=== PATIENT | male | born 1955 | race Caucasian/White ===

== ENCOUNTER 2016-06-22 15:02 | Emergency (ER) | payer MEDICARE, OTHER ==
[~2016-06-22 15:02] MED LIST: Z.0.NO CURRENT MEDS
[2016-06-22 15:04] VITALS: BP 159/72; PULSE 130; RESP 36; TEMP 97.4; O2SAT 99
[2016-06-22] MEDS ORDERED: SODIUM CHLOR 0.9% 1000 ML INJ 1,000 ML IV ONE (15:19)
[2016-06-22 15:20] VITALS: O2SAT 98
[2016-06-22] MEDS ORDERED: SODIUM CHLORIDE 0.9% FLUSH 5 ML FLUSH IVF PRN (15:30)
[2016-06-22] MEDS ORDERED: LORazepam 2 MG/ML VIAL IVS ONE (15:30)
[2016-06-22 15:46] LABS: AUTOMATED NEUTROPHIL # 8.5 TH/MM3 (1.8-7.7); BASOPHIL # 0.1 TH/MM3 (0-0.2); BASOPHIL % 0.6 % (0.0-2.0); EOSINOPHIL % 0.2 % (0.0-4.0); HEMATOCRIT 53.8 % (39.0-51.0); HEMO FLAGS DIFF FINAL; LYMPH % 20.2 % (9.0-44.0); LYMPHOCYTE # 2.4 TH/MM3 (1.0-4.8); MEAN CELL VOLUME 94.7 FL (80.0-100.0); MEAN CORPUSCULAR HEMOGLOBIN 30.7 PG (27.0-34.0); MEAN CORPUSCULAR HGB CONC 32.4 % (32.0-36.0); PLATELET COUNT 213 TH/MM3 (150-450); RED BLOOD COUNT 5.68 MIL/MM3 (4.50-5.90); RED CELL DISTRIBUTION WIDTH 13.7 % (11.6-17.2); WHITE BLOOD COUNT 11.8 TH/MM3 (4.0-11.0)
--- NOTE | 2016-06-22 16:07 | RADRPT ---
EXAM DATE/TIME: 06/22/2016 15:43 [facility] COMPARISON: No previous studies available for comparison. INDICATIONS : Seizure. Fell and hit face. RADIATION DOSE: 40.95 CTDIvol (mGy) MEDICAL HISTORY : Seizures. SURGICAL HISTORY : Fusion, cervical. ENCOUNTER: Initial ACUITY: 1 day PAIN SCALE: 0/10 LOCATION: cranial TECHNIQUE: Multiple contiguous axial images were obtained of the head. Using automated exposure control and adj ustment of the mA and/or kV according to patient size, radiation dose was kept as low as reasonably a chievable to obtain optimal diagnostic quality images. Moderate motion artifact is present requiring multiple images to be repeated. FINDINGS: Ventricles are of normal size. There is no parenchymal hemorrhage, acute infarction or mass lesion. Posterior fossa is unremarkable. The orbits and paranasal sinuses are normal. Soft tissue swelling is present over the right frontal bone without fracture. CONCLUSION: Motion, otherwise negative. Motion makes exclusion of subtle hemorrhage idifficult. Rosalio Stout MD FACR on June 22, 2016 at 16:04 Board Certified Radiologist. This report was verified electronically.
[2016-06-22 16:09] LABS: ALKALINE PHOSPHATASE 94 U/L (45-117); ALT (GPT) 31 U/L (12-78); ANION GAP 24 MEQ/L (5-15); AST (GOT) 34 U/L (15-37); BLOOD UREA NITROGEN 8 MG/DL (7-18); CHLORIDE 100 MEQ/L (98-107); GLOMERULAR FILTRATION RATE 52 ML/MIN (>89); SODIUM (NA) 142 MEQ/L (136-145); TOTAL BILIRUBIN ADULT 0.8 MG/DL (0.2-1.0)
[2016-06-22 16:12] LABS: POTASSIUM 3.7 MEQ/L (3.5-5.1)
--- NOTE | 2016-06-22 16:22 | RADRPT ---
EXAM DATE/TIME: 06/22/2016 15:43 [facility] COMPARISON: No previous studies available for comparison. INDICATIONS : Seizure. Fell and landed on face. RADIATION DOSE: 40.95 CTDIvol (mGy) MEDICAL HISTORY : Seizures. SURGICAL HISTORY : Fusion, cervical. ENCOUNTER: Initial ACUITY: 1 day PAIN SCORE: 0/10 LOCATION: facial TECHNIQUE: Volumetric scanning of the facial bones was performed. Using automated exposure control and adjustme nt of the mA and/or kV according to patient size, radiation dose was kept as low as reasonably achiev able to obtain optimal diagnostic quality images. FINDINGS: ORBITS: The orbital and infraorbital osseous structures are intact. The retroconal structures have a normal configuration. No radiopaque foreign bodies are seen. NASAL BONE: The nasal bone and maxillary spine are intact ZYGOMATIC ARCHES: Symmetric without evidence of fracture. SINUSES: There is mucosal disease at the maxillary sinuses being more prominent on the right. The ethmoid and frontal sinuses are intact. No air-fluid levels seen. NASAL CAVITY: The nasal septum is intact and midline. The lacrimal ducts are intact. INTRACRANIAL: No intracranial air seen. CRIBIFORM PLATE: Grossly intact. There is fracturing of the inferior anterior left maxilla extending to the anterior and lateral aspec t of the maxillary sinus. This is nondisplaced. There are cerclage wires seen at the posterior elemen ts of the upper cervical spine. There is right frontal and supraorbital soft tissue swelling. CONCLUSION: Fracturing of the anterior inferior lateral aspect of the left maxilla. Jluis Guillory MD on June 22, 2016 at 16:15 Board Certified Radiologist. This report was verified electronically.
[2016-06-22] MEDS ORDERED: ONDANSETRON HCL 4 MG/2 ML VIAL IV PUSH ONE (16:45)
[2016-06-22 16:55] VITALS: BP 128/95; PULSE 83; RESP 18; O2SAT 98
[2016-06-22 16:56] LABS: AMPHETAMINE, URINE NEG (NEG); BARBITURATES, URINE NEG (NEG); COCAINE, URINE NEG (NEG)
[2016-06-22] MEDS ORDERED: NAME10TA PO ×2 (17:07→17:57)
[2016-06-22] MEDS ORDERED: TEGR200T PO (17:07)
[2016-06-22] MEDS ORDERED: VENL75CA44 PO (17:57)
--- NOTE | 2016-06-22 19:21 | RADRPT ---
EXAM DATE/TIME: 06/22/2016 19:09 [facility] COMPARISON: No previous studies available for comparison. INDICATIONS : Cough. syncope. MEDICAL HISTORY : seizures. SURGICAL HISTORY : None. ENCOUNTER: Initial ACUITY: 1 day PAIN SCORE: 0/10 LOCATION: Bilateral chest FINDINGS: A single view of the chest demonstrates the lungs to be symmetrically aerated without evidence of mas s, infiltrate or effusion. The cardiomediastinal contours are unremarkable. Osseous structures are intact. CONCLUSION: No evidence of acute cardiopulmonary disease. Jluis Daniels MD on June 22, 2016 at 19:19 Board Certified Radiologist. This report was verified electronically.
--- NOTE | 2016-06-22 19:39 | PD ---
HPI Chief Complaint: Seizure Time Seen by Provider: 15:19 Travel History International Travel<30 days: No Contact w/Intl Traveler<30days: No Traveled to known affect area: No History of Present Illness HPI Patient is a 60 year old male who comes in after a seizure today. He has a history of seizures and takes Tegretol and venlafaxine and has been compliant. Per he had a seizure and fell on his face today. Patient then had another seizure in triage. Per , he was feeling in his normal state of health prior to the seizure. His son states he has not been sleeping well. The family reports he has not had a seizure in a while. He currently has no complaints. PFSH Past Medical History Kidney Stones: Yes Medical other: Yes (MULTIPLE HEAD INJURIES) Seizures: Yes Past Surgical History Abdominal Surgery: Yes (HERNIA REPAIR X 4) Cholecystectomy: Yes Genitourinary Surgery: Yes (VASECTOMY ) Other Surgery: Yes (BREE) Social History Alcohol Use: No Tobacco Use: No Substance Use: No Allergies-Medications (Allergen,Severity, Reaction): Coded Allergies: Penicillin (Verified Allergy, Mild, 06/22/16) Sodium Phosphate (Verified Allergy, Mild, 06/22/16) Tetanus Immune Globulin (Verified Allergy, Mild, 06/22/16) Benadryl (Verified Allergy, Unknown, 06/22/16) Dilantin (Verified Allergy, Unknown, 06/22/16) Uncoded Allergies: BEE STINGS (Allergy, Mild, RESP. DISTRESS, 02/24/06) Reported Meds & Prescriptions Reported Meds & Active Scripts Active Clindamycin (Clindamycin HCl) 150 Mg Cap 450 Mg PO Q6H 7 Days Lortab (Hydrocodone-Acetaminophen) 5-325 Mg Tab 1 Tab PO Q6H PRN Reported Venlafaxine ER 24 HR (Venlafaxine HCl) 75 Mg Cap 75 Mg PO HS Namenda (Memantine) 10 Mg Tab 20 Mg PO HS Tegretol (Carbamazepine) 200 Mg Tab 200 Mg PO HS Review of Systems Except as stated in HPI: all other systems reviewed are Neg Eyes: No: Diploplia, Blurred Vision HENT: No: Headaches Cardiovascular: No: Chest Pain or Discomfort Respiratory: No: Shortness of Breath Gastrointestinal: No: Nausea, Vomiting Skin: Positive Other (laceration), No Change in Pigmentation Neurologic: Positive: Seizures Physical Exam Narrative GENERAL: Awake and alert, in no acute distress SKIN: Warm and dry. abrasions to the face, around the nose. HEAD: Atraumatic. Normocephalic. EYES: Pupils equal and round. No scleral icterus. EOMI ENT: Mucous membranes pink and moist. Slight oozing from right nare, no septal hematoma. NECK: Trachea midline. No JVD. CARDIOVASCULAR: Regular rate and rhythm. No murmur appreciated. RESPIRATORY: No accessory muscle use. Clear to auscultation. Breath sounds equal bilaterally. GASTROINTESTINAL: Abdomen soft, non-tender, nondistended. MUSCULOSKELETAL: No obvious deformities. No clubbing. No cyanosis. No edema. NEUROLOGICAL: Awake and alert. No obvious cranial nerve deficits. Motor grossly within normal limits. Normal speech. PSYCHIATRIC: Appropriate mood and affect; insight and judgment normal. Data Data Last Documented VS Vital Signs Date Time Temp Pulse Resp B/P Pulse Ox O2 Delivery O2 Flow Rate FiO2 06/22/16 20:18 90 18 156/86 93 Room Air 06/22/16 16:55 2 06/22/16 15:04 97.4 Orders Complete Blood Count With Diff (06/22/16 15:19) Alcohol (Ethanol) (06/22/16 15:19) Carbamazepine (Tegretol) (06/22/16 15:19) Drug Screen, Random Urine (06/22/16 15:19) Electrocardiogram (06/22/16 ) Ct Brain W/O Iv Contrast(Rout) (06/22/16 ) Blood Glucose (06/22/16 15:19) Ecg Monitoring (06/22/16 15:19) Iv Access Insert/Monitor (06/22/16 15:19) Oximetry (06/22/16 15:19) Comprehensive Metabolic Panel (06/22/16 15:19) Sodium Chlor 0.9% 1000 Ml Inj (Ns 1000 M (06/22/16 15:19) Sodium Chloride 0.9% Flush (Ns Flush) (06/22/16 15:30) Lorazepam Inj (Ativan Inj) (06/22/16 15:30) Ct Facial Bones W/O Iv Cont (06/22/16 ) Ondansetron Inj (Zofran Inj) (06/22/16 16:45) Chest, Single Ap (06/22/16 19:06) Labs Laboratory Tests Test 06/22/16 06/22/16 15:24 16:30 White Blood Count 11.8 TH/MM3 Red Blood Count 5.68 MIL/MM3 Hemoglobin 17.4 GM/DL Hematocrit 53.8 % Mean Corpuscular Volume 94.7 FL Mean Corpuscular Hemoglobin 30.7 PG Mean Corpuscular Hemoglobin 32.4 % Concent Red Cell Distribution Width 13.7 % Platelet Count 213 TH/MM3 Mean Platelet Volume 8.5 FL Neutrophils (%) (Auto) 72.0 % Lymphocytes (%) (Auto) 20.2 % Monocytes (%) (Auto) 7.0 % Eosinophils (%) (Auto) 0.2 % Basophils (%) (Auto) 0.6 % Neutrophils # (Auto) 8.5 TH/MM3 Lymphocytes # (Auto) 2.4 TH/MM3 Monocytes # (Auto) 0.8 TH/MM3 Eosinophils # (Auto) 0.0 TH/MM3 Basophils # (Auto) 0.1 TH/MM3 CBC Comment DIFF FINAL Differential Comment Sodium Level 142 MEQ/L Potassium Level 3.7 MEQ/L Chloride Level 100 MEQ/L Carbon Dioxide Level 18.0 MEQ/L Anion Gap 24 MEQ/L Blood Urea Nitrogen 8 MG/DL Creatinine 1.39 MG/DL Estimat Glomerular Filtration 52 ML/MIN Rate Random Glucose 185 MG/DL Calcium Level 9.6 MG/DL Total Bilirubin 0.8 MG/DL Aspartate Amino Transf 34 U/L (AST/SGOT) Alanine Aminotransferase 31 U/L (ALT/SGPT) Alkaline Phosphatase 94 U/L Total Protein 8.5 GM/DL Albumin 4.7 GM/DL Carbamazepine (Tegretol) Level 5.5 MCG/ML Ethyl Alcohol Level LESS THAN 3 MG/DL Urine Opiates Screen NEG Urine Barbiturates Screen NEG Urine Amphetamines Screen NEG Urine Benzodiazepines Screen NEG Urine Cocaine Screen NEG Urine Cannabinoids Screen POS MDM Medical Decision Making Medical Screen Exam Complete: Yes Emergency Medical Condition: Yes Differential Diagnosis breakthrough seizure vs electrolyte abnormalities vs facial bone fracture Narrative Course Patient is a 60 year old male who comes in after a seizure today. Exam shows swelling to the nose, no neurologic abnormalities. IV established, labs sent. Patient given IVF, Zofran. CT head performed shows no acute abnormalities. CT facial bones shows a nondisplaced maxillary fracture. Patient given prescription for Amoxicillin, pain medication. Given sinus precautions. Patient did not have any further seizures in the ED. Advised to follow up with max/face surgery. Advised to follow up with neurology. Advised to return to the ED as needed for any worsening symptoms. Last 24 hours Impressions Chest X-Ray 06/22/16 1906 Signed Impressions: Service Date/Time: June 19:09 - CONCLUSION: No evidence of acute cardiopulmonary disease. Jluis Daniels MD Maxillofacial CT 06/22/16 0000 Signed Impressions: Service Date/Time: , June 22, 2016 15:43 - CONCLUSION: Fracturing of the anterior inferior lateral aspect of the left maxilla. Jluis Guillory MD Head CT 06/22/16 0000 Signed Impressions: Service Date/Time: June 15:43 - CONCLUSION: Motion, otherwise negative. Motion makes exclusion of subtle hemorrhage idifficult. Rosalio Stout MD FACR Diagnosis Primary Impression: Seizure Additional Impression: Maxillary fracture Qualified Code: S02.401A - Closed fracture of maxilla, unspecified laterality , initial encounter Referrals: Doc Merritt DDS call for appointment Patient Instructions: Facial Fracture (ED), General Instructions, Recurrent Seizures in Adults (ED) Additional Instructions: Follow up with Dr. Merritt, [address] [place] [id number] [phone]. Take your antibiotics. Take pain medication as needed. Return to the ED as needed for any worsening symptoms. Scripts Clindamycin 150 Mg [id number] Mg PO Q6H 7 Days Ref 0 Prov:Yamileth Das MD 06/22/16 Hydrocodone-Acetaminophen (Lortab)5-325 Mg Tab1 Tab PO Q6H PRN (PAIN) #12 TAB Ref 0 Prov:Yamileth Das MD 06/22/16 Disposition: 01 DISCHARGE HOME Condition: Stable Yamileth Das MD Jun 22, 2016 19:39
[2016-06-22] MEDS ORDERED: HYDR-3533 PO (20:08)
[2016-06-22] MEDS ORDERED: CLIN1CAP5 PO (20:09)
[2016-06-22 20:18] VITALS: BP 156/86; PULSE 90; RESP 18; O2SAT 93
--- NOTE | 2016-06-23 15:37 | EKG ---
Date Performed: 06/22/2016 Time Performed: 15:28:40 PTAGE: 60 years EKG: SINUS TACHYCARDIA RIGHT AXIS DEVIATION SIGNIFICANT BASELINE ARTIFACT ABNORMAL RHYTHM ECG PREVIOUS TRACING : 12/18/2001 13.13 Compared to previous tracing, the patient is now tachycardi c. DOCTOR: Delmis Ott Interpretating Date/Time 06/23/2016 15:35:49
== END 2016-06-22 20:37 | disposition home or self-care (01) ==
LOC: NEPE 15:02
DX: R56.9 Unspecified convulsions (principal); S02.40DA Maxillary fracture, left side, initial encounter for closed fracture; R94.31 Abnormal electrocardiogram [ECG] [EKG]; Z86.69 Personal history of other diseases of the nervous system and sense organs; W18.39XA Other fall on same level, initial encounter
CPT/HCPCS: 70450; 70486; 71010; 80053; 80156; 80307; 85025; 93005; 96361; 96374; 96375; 99284; J2060; J2405; J7030

== ENCOUNTER 2017-04-05 13:46 | Emergency (ER) | payer OTHER, MEDICARE ==
[~2017-04-05] VITALS: Ht 180.3 cm; Wt 95.0 kg
[~2017-04-05 13:46] MED LIST changes: +CLIN150C14 PO; +HYDR-3533 PO; +NAME10TA PO; +TEGR200T PO; +VENL75CA44 PO; -Z.0.NO CURRENT MEDS
[2017-04-05 13:48] VITALS: BP 157/97; PULSE 90; RESP 16; TEMP 98.1; O2SAT 88
[2017-04-05] MEDS ORDERED: SODIUM CHLORIDE 0.9% FLUSH 10 ML FLUSH IVF PRN (14:00)
--- NOTE | 2017-04-05 14:01 | PD ---
Data Data Last Documented VS Vital Signs Date Time Temp Pulse Resp B/P (MAP) Pulse Ox O2 Delivery O2 Flow Rate FiO2 04/05/17 16:03 04/05/17 15:46 76 18 100 Nasal Cannula 2.00 04/05/17 13:48 98.1 Orders Orders Basic Metabolic Panel (Bmp) (04/05/17 13:56) Alcohol (Ethanol) (04/05/17 13:56) Carbamazepine (Tegretol) (04/05/17 13:56) Blood Glucose (04/05/17 13:56) Ecg Monitoring (04/05/17 13:56) Iv Access Insert/Monitor (04/05/17 13:56) Oximetry (04/05/17 13:56) Sodium Chloride 0.9% Flush (Ns Flush) (04/05/17 14:00) Ed Discharge Order (04/05/17 15:49) Labs Laboratory Tests Test 04/05/17 14:00 Blood Urea Nitrogen 9 MG/DL Creatinine 1.55 MG/DL Random Glucose 126 MG/DL Calcium Level 9.0 MG/DL Sodium Level 136 MEQ/L Potassium Level 4.1 MEQ/L Chloride Level 101 MEQ/L Carbon Dioxide Level 18.6 MEQ/L Anion Gap 16 MEQ/L Estimat Glomerular Filtration Rate 46 ML/MIN Carbamazepine (Tegretol) Level LESS THAN 0.5 MCG/ML Ethyl Alcohol Level LESS THAN 3 MG/DL MDM Medical Record Reviewed: Yes Supervised Visit with LASHANDA: Yes Narrative Course I, Dr. Saleem, have reviewed the advance practice practitioner's documentation and am in agreement, met with the patient face to face, made the diagnosis, and the medical decision making was done by me. *My assessment and Findings: The most important thing for the patient understands that he cannot drive with his seizure disorder. The patient has verbalized understanding. Follow-up with neurology discussed. Workup reveals mild anion gap acidosis which is to be expected following seizure activity accompanied with a mild drop in bicarbonate. The patient's significant other is in the ER as well who verbalizes understanding and agreement with the assessment and plan. Alex Saleem MD Apr 05, 2017 14:01
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
[2017-04-05 14:28] LABS: BICARBONATE 18.6 MEQ/L (21.0-32.0); BLOOD UREA NITROGEN 9 MG/DL (7-18); CHLORIDE 101 MEQ/L (98-107); CREATININE 1.55 MG/DL (0.60-1.30); GLOMERULAR FILTRATION RATE 46 ML/MIN (>89); GLUCOSE,RANDOM 126 MG/DL (74-106); SODIUM (NA) 136 MEQ/L (136-145)
[2017-04-05 14:30] LABS: CARBAMAZEPINE (TEGRETOL) LESS THAN 0.5 MCG/ML (4.0-12.0)
[2017-04-05 15:46] VITALS: BP 145/86; PULSE 76; RESP 18; O2SAT 100
== END 2017-04-05 16:21 | disposition home or self-care (01) ==
LOC: NEPC 13:46
DX: G40.909 Epilepsy, unspecified, not intractable, without status epilepticus (principal)
CPT/HCPCS: 80048; 80156; 80307; 99282